=== PATIENT | female | born 1940 | race Caucasian/White ===

== ENCOUNTER 2022-10-05 16:27 | Inpatient (IN) ==
[2022-10-05] MEDS ORDERED: IOPAMIDOL 100 ML BOTTLE IV ONE (16:28)
[2022-10-05] MEDS ORDERED: IPRATROPIUM/ALBUTEROL 3 ML AMPUL.NEB NEB ONE ×2 (17:10→23:05)
[2022-10-05] MEDS ORDERED: methylPREDNISolone SOD SUCC 125 MG/2 ML VIAL IV ONE (17:10)
--- NOTE | 2022-10-05 17:20 | Emergency Department Note ---
HPI General Chief complaint: Recheck/Abnormal Lab/Rx Stated complaint: Placement Time Seen by Provider: 10/05/22 16:31 Source: patient and EMS Mode of arrival: EMS Limitations: no limitations History of Present Illness HPI Narrative: Narrative: 82-year-old female presents to the emergency to [place] [facility] for shortness of breath and cough. She has history of COPD and has had increasing shortness of breath and cough recently. Last night she was seen by a provider at the [facility] and was told she has pneumonia. She was treated with 2 antibiotics, she is not sure what antibiotics they were. Since then she has continued to cough and feel short of breath. She complains of pain in the center of her chest. The pain is constant. It is tender to touch and hurts to take a deep breath. Patient is normally on 2 L of oxygen, she is requiring 4 L right now and still feels short of breath. Patient does not know if she has had a fever. She has had some sweats and chills. She has decreased appetite and nausea without vomiting. Patient has severe neuropathy and complains of pain in both legs. She is not swollen. Related Data Home Medications Medication Instructions Recorded Confirmed lansoprazole 30 mg capsule,delayed 30 mg PO DAILY 10/12/17 09/19/22 release levothyroxine 100 mcg capsule 100 mcg PO DAILY 10/12/17 09/19/22 amlodipine 10 mg-benazepril 20 mg 1 cap PO QDAY 12/12/17 09/19/22 capsule (Lotrel) albuterol sulfate 90 mcg/actuation 2 puff inhalation Q6H PRN Dyspnea 08/09/19 09/19/22 aerosol inhaler (ProAir HFA) cholecalciferol (vitamin D3) 1,250 50,000 unit PO QWEEK 08/09/19 09/19/22 mcg (50,000 unit) capsule oxycodone-acetaminophen 5 mg-300 1 tab PO Q6H PRN Pain 08/09/19 09/19/22 mg tablet oxygen 2lpm #1 ea 08/09/19 09/19/22 torsemide 10 mg tablet 10 mg PO QDAY 08/09/19 09/19/22 aspirin 81 mg capsule 81 mg PO QDAY 09/03/21 09/19/22 potassium chloride 10 mEq 10 meq PO QDAY 10/15/21 09/19/22 tablet,extended release gabapentin 300 mg capsule 600 mg PO BID 03/01/22 09/19/22 Previous Rx's Medication Instructions Recorded lorazepam 0.5 mg tablet 0.5 mg PO QDAY PRN Anxiety #28 tabs 04/01/21 Recliner #1 ea 10/05/22 Allergies Allergy/AdvReac Type Severity Reaction Status Date / Time Beta-Blockers Allergy Mild Hives Verified 10/05/22 16:36 (Beta-Adrenergic Bloc codeine Allergy Mild Nausea Verified 10/05/22 16:36 promethazine [From Phenergan] Allergy Unknown Seizure Verified 10/05/22 16:36 venlafaxine [From Effexor] Allergy Unknown Unknown Verified 10/05/22 16:36 [id number] AdvReac Mild Voice Verified 10/05/22 16:36 [From Trelegy Ellipta] Change, Chest Rattle, Increased Cough umeclidinium AdvReac Mild Voice Verified 10/05/22 16:36 [From Trelegy Ellipta] Change, Chest Rattle, Increased Cough vilanterol AdvReac Mild Voice Verified 10/05/22 16:36 [From Trelegy Ellipta] Change, Chest Rattle, Increased Cough Review of Systems ROS ROS Narrative: Narrative: All systems ED: reviewed and negative except as stated. [facility] Narrative Patient History Narrative: Narrative: Medical/Surgical/Family History All Active Problems (Updated 10/05/22 @ 22:09 by Karley Arteaga PA-C) General weakness (Acute) Pneumonia (Acute) Neuropathy (Chronic) Nocturnal hypoxia (Chronic) Right lateral epicondylitis (Chronic) COPD (chronic obstructive pulmonary disease) (Chronic) Peripheral edema (Chronic) Peripheral nerve disease (Chronic) Restless leg (Chronic) Irritable bowel syndrome (Chronic) Chronic pain syndrome (Chronic) Osteoarthritis (Chronic) Essential tremor (Chronic) Anxiety disorder (Chronic) Essential hypertension (Chronic) 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) Hypothyroidism (Chronic) Obesity (Chronic) Gastroesophageal reflux disease (Chronic) Pulmonary emphysema (Chronic) Asthma (Chronic) Hypoxemia (Chronic) Vitamin D deficiency (Chronic) Adenomatous colon polyp (Chronic) Anxiety disorder due to general medical condition (Chronic) Contact dermatitis (Chronic) Chronic use of opiate drugs therapeutic purposes (Chronic) Chronic venous stasis dermatitis (Chronic) Current use of proton pump inhibitor (Chronic) Degenerative joint disease of shoulder (Chronic) Depression (Chronic) Edema (Chronic) GERD without esophagitis (Chronic) Headache (Chronic) Hypokalemia (Chronic) Irritable bowel syndrome without diarrhea (Chronic) Joint pain, knee (Chronic) Leg cramps (Chronic) Legal blindness, as defined in [place] (Chronic) Lipoma (Chronic) Menopausal symptoms (Chronic) Narcotic bowel syndrome (Chronic) Nausea and vomiting (Chronic) Nonulcer dyspepsia (Chronic) Overweight (Chronic) Panic disorder without agoraphobia (Chronic) Peripheral neuropathy (Chronic) Post-menopausal (Chronic) Rash of unknown cause (Chronic) Reactive airway disease (Chronic) Right shoulder pain (Chronic) Shortness of breath (Chronic) Sore throat (Chronic) Stasis dermatitis (Chronic) Urinary tract infection (Chronic) Abnormal weight gain (Chronic) Benign polyp of large intestine (Chronic) Claustrophobia (Chronic) Difficulty balancing (Chronic) Exposure to radiation (Chronic) Frequent falls (Chronic) Hereditary and idiopathic neuropathy (Chronic) Radiculopathy (Chronic) Breast cancer (Chronic) Abdominal pain (Chronic) Schatzki's ring (Chronic) Excessive gas (Chronic) Monoclonal gammopathy (Chronic) Morbid obesity (Chronic) Chronic pain (Chronic) Radiculopathy, lumbar region (Chronic) History of breast cancer (Chronic) Macular degeneration (Chronic) History of tobacco use (Chronic) History of surgery (Chronic) Acute lumbar radiculopathy (Chronic) Medical History (Updated 10/05/22 @ 22:09 by Karley Arteaga PA-C) Abdominal pain Abnormal weight gain Acute lumbar radiculopathy Adenomatous colon polyp Anxiety disorder Anxiety disorder due to general medical condition Asthma Benign polyp of large intestine Breast cancer Chronic pain Chronic pain syndrome Chronic use of opiate drugs therapeutic purposes Chronic venous stasis dermatitis Claustrophobia Contact dermatitis COPD (chronic obstructive pulmonary disease) Current use of proton pump inhibitor Cystocele Degenerative joint disease of shoulder Depression Difficulty balancing Edema Essential hypertension Essential tremor Exposure to radiation Frequent falls Gastroesophageal reflux disease GERD without esophagitis Headache Hereditary and idiopathic neuropathy History of breast cancer History of tobacco use Hypokalemia Hypothyroidism Hypoxemia Irritable bowel syndrome Irritable bowel syndrome without diarrhea Joint pain, knee Leg cramps Legal blindness Legal blindness, as defined in [place] Lipoma Macular degeneration PROGRESSED TO BLINDNESS Menopausal symptoms Monoclonal gammopathy Monoclonal gammopathy of undetermined significance Morbid obesity Narcotic bowel syndrome Nausea and vomiting Neuropathy Nocturnal hypoxia Nonulcer dyspepsia Obesity Osteoarthritis Overweight Panic disorder without agoraphobia Peripheral edema Peripheral nerve disease Peripheral neuropathy Post-menopausal Pulmonary emphysema Radiculopathy Radiculopathy, lumbar region Rash of unknown cause Reactive airway disease Rectocele Restless leg Right lateral epicondylitis Right shoulder pain Schatzki's ring Shortness of breath Sore throat Stasis dermatitis Urinary tract infection Vitamin D deficiency Surgical History History of appendectomy (~1977) History of arthroscopy of knee (~1985) History of back surgery (~1972) Lower back History of breast surgery (~2007) Lumpectomy History of cataract surgery 2005, 2001 History of cholecystectomy (~1977) History of hysterectomy (~1979) History of inguinal hernia repair (~1996) with mesh History of orthopedic surgery (~2008) wrist History of sinus surgery x 3 History of surgery 1996-cystocele (1994) and rectocele repairs History of surgery SCS Trial w/sed 03/19/2020 Caudal DENIS #3 w/o sed 25g 3.5\\" needle 02/13/2014 Caudal DENIS #2 w/o sed 01/29/2014 LESI #1 L5-S1 w/o sed 01/08/2014 Trigger Point Injection 1-2 w/o sed 01/08/2014 LESI #3 L5-S1 w/o sed 06/14/2013 LESI #2 L5-S1 w/o sed 11/21/2012 LESI #1 L5-S1, right dir. w/o sed 11/06/2012 History of tonsillectomy and adenoidectomy (~1959) History of total left knee replacement (~2012) Family History Mother Malignant neoplastic disease Other Benign polyp of large intestine Colon cancer Osteoporosis Social History Smoking Status: Former smoker Alcohol Intake Frequency: does not drink Substance Use: does not use Exam Narrative Narrative: Narrative: General Limitations: no limitations General appearance: Present anxious Head Head: Present atraumatic ENT ENT: Present mucous membranes moist Neck Neck: Absent lymphadenopathy Chest Chest: Present normal inspection Respiratory Respiratory: Present wheezes and decreased breath sounds Cardiovascular Cardiovascular: Present normal heart sounds Adbominal Abdominal: Present soft; Absent tenderness Extremities Extremities: Absent pretibial edema Back Back: Present normal inspection Neurological Neurological: Present alert Skin Skin: Present warm (WNL) Course Vital Signs Vital signs: Vital Signs Temperature 97.4 F 10/05/22 16:27 Pulse Rate 83 10/05/22 16:27 Respiratory Rate 20 10/05/22 16:27 Blood Pressure 120/72 10/05/22 16:27 Pulse Oximetry (%) 93 10/05/22 16:27 Oxygen Delivery Method Nasal Cannula 10/05/22 16:27 Oxygen Flow Rate (L/min) 4 10/05/22 16:27 Temperature 97.4 F 10/05/22 16:27 Pulse Rate 94 H 10/05/22 20:01 Respiratory Rate 19 10/05/22 21:02 Blood Pressure 152/76 10/05/22 21:02 Pulse Oximetry (%) 92 10/05/22 20:01 Oxygen Delivery Method Nasal Cannula 10/05/22 18:32 Oxygen Flow Rate (L/min) 4 10/05/22 18:32 MDM MDM Narrative Medical decision making narrative: Narrative: Differential includes COPD exacerbation, ACS, CHF, pneumonia. Patient was treated with DuoNeb and IV Solu-Medrol. CBC, Chem-8, troponin, proBNP, chest x-ray, and EKG are ordered. Chest x-ray does show patchy basilar infiltrate. EKG sinus rhythm, right bundle branch block, no ST segment changes. No concerning findings on CBC, Chem-8, troponin. proBNP is mildly elevated, however patient does not appear to have fluid ove rload on chest x-ray. After treatment with Solu-Medrol and DuoNeb patient continued to have some whe ezing, she did have improvement in air movement but was still tight. Patient has chronic neuropathy and he takes oxycodone for this. She was given a dose in the emergency department and felt much better afterwards. Patient continues to have a increased oxygen requirement. I have discussed her with the hospitalist who is agreed to admit her. Lab Data 10/05/22 17:28 Labs: Lab Results 10/05/22 10/05/22 10/05/22 Range/Units 17:28 17:28 17:28 WBC 9.5 (4.5-11.0) K/mcL RBC 4.24 (3.59-5.38) M/mcL Hgb 13.0 (11.2-15.7) g/dL Hct 41.5 (34.1-44.9) % POC Hct (36-48) MCV 97.9 (80.0-100.0) fL MCH 30.7 (26.0-34.0) pg MCHC 31.3 (31.0-36.0) g/dL RDW 13.2 (11.5-14.5) % Plt Count 160 (140-440) K/mcL MPV 9.5 (8.8-12.5) fL Immature Gran % (Auto) 0.4 (0.0-0.5) % Neut % (Auto) 84.1 H (38.0-78.0) % Lymph % (Auto) 4.4 L (15.5-49.0) % [place] % (Auto) 10.5 (1.0-12.0) % Eos % (Auto) 0.3 (0.0-7.0) % Baso % (Auto) 0.3 (0.0-2.0) % Lymph # (Auto) 0.42 L (1.50-4.80) K/mcL [place] # (Auto) 1.00 H (0.10-0.90) K/mcL Eos # (Auto) 0.03 (0.00-0.70) K/mcL Baso # (Auto) 0.03 (0.00-0.30) K/mcL Immature Gran # 0.04 (0.00-0.05) K/mcl Absolute Neutrophils 8.00 (1.80-8.00) K/mcL D-Dimer 1.56 H (0.27-0.50) ug/mL ABG Methemoglobin (0.4-1.5) % VBG pH (7.32-7.42) U VBG pCO2 (41.0-51.0) mmHg VBG pO2 (25.0-40.0) mmHg VBG HCO3 (24.0-28.0) mmol/L VBG Total CO2 (25.0-29.0) mmol/L VBG O2 Saturation (40.0-70.0) % VBG Base Excess (-2-3) Carboxyhemoglobin (0.0-1.5) % THgb Total Hemoglobin (12.0-15.0) gm/Dl POC Sodium (133-145) POC Potassium (3.3-5.1) POC Chloride (96-108) POC Total CO2 (22-30) POC BUN (6-20) POC Creatinine (0.6-1.2) POC Glucose (70-105) POC WB Ioniz Calcium (1.16-1.32) C-Reactive Protein (0.03-0.80) mg/dL NT-Pro-B Natriuret Pep 627.2 H (<450.0) pg/mL Procalcitonin (<0.10) ng/mL POC Troponin I (0.00-0.08) 10/05/22 10/05/22 10/05/22 Range/Units 17:28 17:28 17:32 WBC (4.5-11.0) K/mcL RBC (3.59-5.38) M/mcL Hgb (11.2-15.7) g/dL Hct (34.1-44.9) % POC Hct 44.0 (36-48) MCV (80.0-100.0) fL MCH (26.0-34.0) pg MCHC (31.0-36.0) g/dL RDW (11.5-14.5) % Plt Count (140-440) K/mcL MPV (8.8-12.5) fL Immature Gran % (Auto) (0.0-0.5) % Neut % (Auto) (38.0-78.0) % Lymph % (Auto) (15.5-49.0) % [place] % (Auto) (1.0-12.0) % Eos % (Auto) (0.0-7.0) % Baso % (Auto) (0.0-2.0) % Lymph # (Auto) (1.50-4.80) K/mcL [place] # (Auto) (0.10-0.90) K/mcL Eos # (Auto) (0.00-0.70) K/mcL Baso # (Auto) (0.00-0.30) K/mcL Immature Gran # (0.00-0.05) K/mcl Absolute Neutrophils (1.80-8.00) K/mcL D-Dimer (0.27-0.50) ug/mL ABG Methemoglobin (0.4-1.5) % VBG pH (7.32-7.42) U VBG pCO2 (41.0-51.0) mmHg VBG pO2 (25.0-40.0) mmHg VBG HCO3 (24.0-28.0) mmol/L VBG Total CO2 (25.0-29.0) mmol/L VBG O2 Saturation (40.0-70.0) % VBG Base Excess (-2-3) Carboxyhemoglobin (0.0-1.5) % THgb Total Hemoglobin (12.0-15.0) gm/Dl POC Sodium 131 L (133-145) POC Potassium 4.3 (3.3-5.1) POC Chloride 88 L (96-108) POC Total CO2 38.0 H (22-30) POC BUN 6 (6-20) POC Creatinine 0.5 L (0.6-1.2) POC Glucose 127 H (70-105) POC WB Ioniz Calcium 1.12 L (1.16-1.32) C-Reactive Protein 18.90 H (0.03-0.80) mg/dL NT-Pro-B Natriuret Pep (<450.0) pg/mL Procalcitonin 0.15 H (<0.10) ng/mL POC Troponin I (0.00-0.08) 10/05/22 10/05/22 Range/Units 17:34 21:01 WBC (4.5-11.0) K/mcL RBC (3.59-5.38) M/mcL Hgb (11.2-15.7) g/dL Hct (34.1-44.9) % POC Hct (36-48) MCV (80.0-100.0) fL MCH (26.0-34.0) pg MCHC (31.0-36.0) g/dL RDW (11.5-14.5) % Plt Count (140-440) K/mcL MPV (8.8-12.5) fL Immature Gran % (Auto) (0.0-0.5) % Neut % (Auto) (38.0-78.0) % Lymph % (Auto) (15.5-49.0) % [place] % (Auto) (1.0-12.0) % Eos % (Auto) (0.0-7.0) % Baso % (Auto) (0.0-2.0) % Lymph # (Auto) (1.50-4.80) K/mcL [place] # (Auto) (0.10-0.90) K/mcL Eos # (Auto) (0.00-0.70) K/mcL Baso # (Auto) (0.00-0.30) K/mcL Immature Gran # (0.00-0.05) K/mcl Absolute Neutrophils (1.80-8.00) K/mcL D-Dimer (0.27-0.50) ug/mL ABG Methemoglobin 0.4 (0.4-1.5) % VBG pH 7.42 (7.32-7.42) U VBG pCO2 50.3 (41.0-51.0) mmHg VBG pO2 73.8 H (25.0-40.0) mmHg VBG HCO3 31.8 H (24.0-28.0) mmol/L VBG Total CO2 33.4 H (25.0-29.0) mmol/L VBG O2 Saturation 90.8 H (40.0-70.0) % VBG Base Excess 6 H (-2-3) Carboxyhemoglobin 4.9 H (0.0-1.5) % THgb Total Hemoglobin 14.8 (12.0-15.0) gm/Dl POC Sodium (133-145) POC Potassium (3.3-5.1) POC Chloride (96-108) POC Total CO2 (22-30) POC BUN (6-20) POC Creatinine (0.6-1.2) POC Glucose (70-105) POC WB Ioniz Calcium (1.16-1.32) C-Reactive Protein (0.03-0.80) mg/dL NT-Pro-B Natriuret Pep (<450.0) pg/mL Procalcitonin (<0.10) ng/mL POC Troponin I < 0.02 (0.00-0.08) ED POC Tests ED POC Tests: BUCKY - Influenza A Negative BUCKY - Influenza B Negative BUCKY - SARS Antigen Negative Discharge Plan Patient/Caregiver Discharge Instructions Pt seen by [employer]/PA only: Yes Clinical Impression: Pneumonia, COPD (chronic obstructive pulmonary disease) Patient Disposition: Xfer As Inpt ([facility]) Follow up with: Unknown,Unknown [Primary Care Provider] - Prescriptions: No Action lorazepam 0.5 mg tablet 0.5 mg PO QDAY PRN (Reason: Anxiety) Qty: 28 0RF (DME) Recliner See Rx Instructions .Route .MEDSUPPLY Qty: 1 0RF Rx Instructions: Due to patient's medical conditions she needs to sleep in a recliner amlodipine-benazepril [Lotrel] 10-20 mg capsule 1 cap PO QDAY torsemide 10 mg tablet 10 mg PO QDAY gabapentin 300 mg capsule 600 mg PO BID Patient Comments: in AM and AT HS cholecalciferol (vitamin D3) 50,000 unit capsule 50,000 unit PO QWEEK (DME) oxygen 2lpm Qty: 1 Rx Instructions: As directed oxycodone-acetaminophen 5-300 mg tablet 1 tab PO Q6H PRN (Reason: Pain) albuterol sulfate [ProAir HFA] 90 mcg/actuation HFA aerosol inhaler 2 puff INHALATION Q6H PRN (Reason: Dyspnea) lansoprazole 30 MG capsule,delayed release(DR/EC) 30 mg PO DAILY levothyroxine 100 MCG capsule 100 mcg PO DAILY potassium chloride 10 mEq tablet extended release 10 meq PO QDAY aspirin 81 mg Capsule 81 mg PO QDAY
[2022-10-05 17:48] LABS: POC Calcium, Ionized 1.12 (1.16-1.32); POC Creatinine 0.5 (0.6-1.2); POC Potassium 4.3 (3.3-5.1)
--- NOTE | 2022-10-05 18:11 | XRay Report ---
CLINICAL INFORMATION: Pneumonia COMPARISON: 01/18/2018 TECHNIQUE: Portable FINDINGS: Moderate cardiomegaly is unchanged. Mediastinum and pulmonary vessels are normal. Moderate patchy infiltrate seen in the left base. Scattered fibrosis seen in the remainder of both lungs. No effusions. IMPRESSION: Moderate patchy left basilar infiltrate Interpreted and Authenticated by: Avery Campbell 10/05/22
[2022-10-05 18:18] LABS: Basophils # (Auto) 0.03 K/mcL (0.00-0.30); Basophils % (Auto) 0.3 % (0.0-2.0); Eosinophils # (Auto) 0.03 K/mcL (0.00-0.70); Eosinophils % (Auto) 0.3 % (0.0-7.0); Hematocrit 41.5 % (34.1-44.9); Lymphocytes # (Auto) 0.42 K/mcL (1.50-4.80); Lymphocytes % (Auto) 4.4 % (15.5-49.0); Mean Cell Volume 97.9 fL (80.0-100.0); Mean Corpuscular HGB Conc 31.3 g/dL (31.0-36.0); Mean Platelet Volume 9.5 fL (8.8-12.5); Monocytes % (Auto) 10.5 % (1.0-12.0); Neutrophils % (Auto) 84.1 % (38.0-78.0); Platelet Count 160 K/mcL (140-440); RBC 4.24 M/mcL (3.59-5.38); Red Cell Distribution Width 13.2 % (11.5-14.5); WBC 9.5 K/mcL (4.5-11.0)
[2022-10-05 18:36] LABS: proBNP 627.2 pg/mL (<450.0)
[2022-10-05] MEDS ORDERED: oxyCODONE HCL 5 MG TABLET PO ONE ×2 (18:42→22:51)
[2022-10-05] MEDS ORDERED: ONDANSETRON 4 MG/2 ML VIAL IV ONE (18:59)
[2022-10-05] MEDS ORDERED: IPRATROPIUM/ALBUTEROL 3 ML AMPUL.NEB NEB SCH (19:00)
[2022-10-05] MEDS ORDERED: ONDANSETRON 4 MG/2 ML VIAL ONE (19:02)
--- NOTE | 2022-10-05 20:40 | Internal Med History&Physical ---
HPI History of Present Illness Patient information: Note initiated : 10/05/22 at 8:37 pm Service Date, if different from initiated Date: [] Patient: Leticia Yi 82 y/o F admitted on for Placement. Chief Complaint: [] History of present illness: Ms. Yi is a 82 year old Female with multiple medical comorbidities who presented to the emergency department because of shortness of breath.. She recently went to custodial nursing at [facility] however things were not going well at that [place] [facility] facility. She complained she was not able to breath in the hospital bed that she was sleeping in at that facility. A chest xray was done at the facility and staff was concerned for pneumonia. The patient was started on a couple antibiotics. Family was concerned and brought the patient to the ED where she was found to be hypoxic requiring about 4 L/min nasal cannula. The patient has chronic hypoxia requiring 2-3 L/minutes oxygen supplementation. Hospital medicine was asked to admit the patient for acute on chronic hypoxia. Review of systems: Positive for shortness of breath, mild abdominal discomfort. Physical exam Head: Atraumatic, normal inspection. Eyes: normal appearance, no scleral icterus. Neck: full ROM Respiratory: Supplemental oxygen via nasal cannula, bilateral wheezing, no respiratory distress. Cardiovascular: normal rate and rhythm, S1, S2. GI/Abdominal: soft, nontender, no guarding. Extremities: full range of motion, nontender. Neurological: CN II-XII intact, intact motor, intact sensation. Psychiatric: normal mood. 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) Hypothyroidism (Chronic) Obesity (Chronic) Gastroesophageal reflux disease (Chronic) Pulmonary emphysema (Chronic) Asthma (Chronic) Hypoxemia (Chronic) Vitamin D deficiency (Chronic) Adenomatous colon polyp (Chronic) Anxiety disorder due to general medical condition (Chronic) Contact dermatitis (Chronic) Chronic use of opiate drugs therapeutic purposes (Chronic) Chronic venous stasis dermatitis (Chronic) Current use of proton pump inhibitor (Chronic) Degenerative joint disease of shoulder (Chronic) Depression (Chronic) Edema (Chronic) GERD without esophagitis (Chronic) Headache (Chronic) Hypokalemia (Chronic) Irritable bowel syndrome without diarrhea (Chronic) Joint pain, knee (Chronic) Leg cramps (Chronic) Legal blindness, as defined in [place] (Chronic) Lipoma (Chronic) Menopausal symptoms (Chronic) Narcotic bowel syndrome (Chronic) Nausea and vomiting (Chronic) Nonulcer dyspepsia (Chronic) Overweight (Chronic) Panic disorder without agoraphobia (Chronic) Peripheral neuropathy (Chronic) Post-menopausal (Chronic) Rash of unknown cause (Chronic) Reactive airway disease (Chronic) Right shoulder pain (Chronic) Shortness of breath (Chronic) Sore throat (Chronic) Stasis dermatitis (Chronic) Urinary tract infection (Chronic) Abnormal weight gain (Chronic) Benign polyp of large intestine (Chronic) Claustrophobia (Chronic) Difficulty balancing (Chronic) Exposure to radiation (Chronic) Frequent falls (Chronic) Hereditary and idiopathic neuropathy (Chronic) Radiculopathy (Chronic) Breast cancer (Chronic) Abdominal pain (Chronic) Schatzki's ring (Chronic) Excessive gas (Chronic) Monoclonal gammopathy (Chronic) Morbid obesity (Chronic) Chronic pain (Chronic) Radiculopathy, lumbar region (Chronic) History of breast cancer (Chronic) Macular degeneration (Chronic) History of tobacco use (Chronic) History of surgery (Chronic) Acute lumbar radiculopathy (Chronic) Medical History (Updated 10/05/22 @ 22:09 by Karley Arteaga PA-C) Abdominal pain Abnormal weight gain Acute lumbar radiculopathy Adenomatous colon polyp Anxiety disorder Anxiety disorder due to general medical condition Asthma Benign polyp of large intestine Breast cancer Chronic pain Chronic pain syndrome Chronic use of opiate drugs therapeutic purposes Chronic venous stasis dermatitis Claustrophobia Contact dermatitis COPD (chronic obstructive pulmonary disease) Current use of proton pump inhibitor Cystocele Degenerative joint disease of shoulder Depression Difficulty balancing Edema Essential hypertension Essential tremor Exposure to radiation Frequent falls Gastroesophageal reflux disease GERD without esophagitis Headache Hereditary and idiopathic neuropathy History of breast cancer History of tobacco use Hypokalemia Hypothyroidism Hypoxemia Irritable bowel syndrome Irritable bowel syndrome without diarrhea Joint pain, knee Leg cramps Legal blindness Legal blindness, as defined in [place] Lipoma Macular degeneration PROGRESSED TO BLINDNESS Menopausal symptoms Monoclonal gammopathy Monoclonal gammopathy of undetermined significance Morbid obesity Narcotic bowel syndrome Nausea and vomiting Neuropathy Nocturnal hypoxia Nonulcer dyspepsia Obesity Osteoarthritis Overweight Panic disorder without agoraphobia Peripheral edema Peripheral nerve disease Peripheral neuropathy Post-menopausal Pulmonary emphysema Radiculopathy Radiculopathy, lumbar region Rash of unknown cause Reactive airway disease Rectocele Restless leg Right lateral epicondylitis Right shoulder pain Schatzki's ring Shortness of breath Sore throat Stasis dermatitis Urinary tract infection Vitamin D deficiency Surgical History History of appendectomy (~1977) History of arthroscopy of knee (~1985) History of back surgery (~1972) Lower back History of breast surgery (~2007) Lumpectomy History of cataract surgery 2005, 2001 History of cholecystectomy (~1977) History of hysterectomy (~1979) History of inguinal hernia repair (~1996) with mesh History of orthopedic surgery (~2008) wrist History of sinus surgery x 3 History of surgery 1996-cystocele (1994) and rectocele repairs History of surgery SCS Trial w/sed 03/19/2020 Caudal DENIS #3 w/o sed 25g 3.5\\" needle 02/13/2014 Caudal DENIS #2 w/o sed 01/29/2014 LESI #1 L5-S1 w/o sed 01/08/2014 Trigger Point Injection 1-2 w/o sed 01/08/2014 LESI #3 L5-S1 w/o sed 06/14/2013 LESI #2 L5-S1 w/o sed 11/21/2012 LESI #1 L5-S1, right dir. w/o sed 11/06/2012 History of tonsillectomy and adenoidectomy (~1959) History of total left knee replacement (~2012) Family History Mother Malignant neoplastic disease Other Benign polyp of large intestine Colon cancer Osteoporosis Social History (Updated 09/10/22 @ 15:58 by Shannon Wang) adopted: No (but lived with her aunt and uncle until she was 10 yrs old) household members: spouse housing: condominium lives independently: No (requires assistance due to loss of eye sight) marital status: education level: high school service: No fci: No occupational status: unemployed occupational exposures/hazards: No pets and animals: Yes hx recent travel: No well-balanced diet: about half the time smoking status: Former smoker quit date: 08/01/87 pack-years: 25 alcohol intake frequency: does not drink substance use type: does not use additional history: Mastectomy Bra and Prosthesis MEDS/ALLERGIES Home Medications and Allergies Home Medications Medication Instructions Recorded Confirmed Type lansoprazole 30 mg capsule,delayed 30 mg PO DAILY 10/12/17 10/06/22 History release levothyroxine 100 mcg capsule 100 mcg PO DAILY 10/12/17 10/06/22 History amlodipine 10 mg-benazepril 20 mg 1 cap PO QDAY 12/12/17 10/05/22 History capsule (Lotrel) albuterol sulfate 90 mcg/actuation 2 puff inhalation Q4H PRN Dyspnea 08/09/19 10/05/22 History aerosol inhaler (ProAir HFA) oxygen 2lpm #1 ea 08/09/19 09/19/22 History torsemide 10 mg tablet 10 mg PO QDAY 08/09/19 10/06/22 History aspirin 81 mg capsule 81 mg PO QDAY 09/03/21 10/05/22 History potassium chloride 10 mEq 10 meq PO QDAY 10/15/21 10/06/22 History tablet,extended release gabapentin 300 mg capsule 600 mg PO BID 03/01/22 10/06/22 History Recliner #1 ea 10/05/22 Rx bisacodyl 10 mg rectal suppository 10 mg [place] QDAY PRN Constipation 10/06/22 10/06/22 History (Dulcolax (bisacodyl)) docusate sodium 100 mg capsule 100 mg PO QDAY 10/06/22 10/06/22 History (Colace) ergocalciferol (vitamin D2) 1,250 1,250 mcg PO MO 10/06/22 10/06/22 History mcg (50,000 unit) capsule guaifenesin 600 mg tablet, 600 mg PO BID 10/06/22 10/06/22 History extended release 12 hr ipratropium 0.5 mg-albuterol 3 mg 3 ml inhalation Q6H 10/06/22 10/06/22 History (2.5 mg base)/3 mL nebulization soln lorazepam 0.5 mg tablet 0.5 mg PO Q8HP PRN Anxiety 10/06/22 10/06/22 History mineral oil (Fleet Mineral Oil 118 ml [place] QDAY PRN Constipation 10/06/22 10/06/22 History enema) ondansetron 4 mg disintegrating 4 mg PO Q6HP PRN Nausea 10/06/22 10/06/22 History tablet oxycodone-acetaminophen 7.5 mg-325 1 tab PO Q6H PRN Pain 10/06/22 10/06/22 History mg tablet prednisone 10 mg tablet 30 mg PO QDAY 10/06/22 10/06/22 History triamcinolone acetonide 0.1 % 1 applic topical BID 10/06/22 10/06/22 History topical cream Allergies Allergy/AdvReac Type Severity Reaction Status Date / Time Beta-Blockers Allergy Mild Hives Verified 10/05/22 16:36 (Beta-Adrenergic Bloc venlafaxine [From Effexor] Allergy Unknown Unknown Verified 10/05/22 16:36 promethazine [From Phenergan] AdvReac Intermediate Seizure Verified 10/06/22 11:47 codeine AdvReac Mild Nausea Verified 10/06/22 06:26 [id number] AdvReac Mild Voice Verified 10/05/22 16:36 [From Trelegy Ellipta] Change, Chest Rattle, Increased Cough umeclidinium AdvReac Mild Voice Verified 10/05/22 16:36 [From Trelegy Ellipta] Change, Chest Rattle, Increased Cough vilanterol AdvReac Mild Voice Verified 10/05/22 16:36 [From Trelegy Ellipta] Change, Chest Rattle, Increased Cough EXAM Constitutional Vitals: Temp Pulse Resp BP Pulse Ox O2 Del Method O2 Flow Rate 97.4 F 71 20 153/98 90 Nasal Cannula 4 10/05/22 16:27 10/05/22 19:31 10/05/22 19:31 10/05/22 19:31 10/05/22 19:31 10/05/22 18:32 10/05/22 18:32 DATA Data Completed and Pending Labs: Labs from last 24 hours 10/05/22 10/05/22 10/05/22 17:34 17:32 17:28 WBC RBC Hgb Hct POC Hct 44.0 MCV MCH MCHC RDW Plt Count MPV Immature Gran % (Auto) Neut % (Auto) Lymph % (Auto) [place] % (Auto) Eos % (Auto) Baso % (Auto) Lymph # (Auto) [place] # (Auto) Eos # (Auto) Baso # (Auto) Immature Gran # Absolute Neutrophils D-Dimer POC Sodium 131 L POC Potassium 4.3 POC Chloride 88 L POC Total CO2 38.0 H POC BUN 6 POC Creatinine 0.5 L POC Glucose 127 H POC WB Ioniz Calcium 1.12 L NT-Pro-B Natriuret Pep Procalcitonin Pending POC Troponin I < 0.02 10/05/22 10/05/22 10/05/22 17:28 17:28 17:28 WBC 9.5 RBC 4.24 Hgb 13.0 Hct 41.5 POC Hct MCV 97.9 MCH 30.7 MCHC 31.3 RDW 13.2 Plt Count 160 MPV 9.5 Immature Gran % (Auto) 0.4 Neut % (Auto) 84.1 H Lymph % (Auto) 4.4 L [place] % (Auto) 10.5 Eos % (Auto) 0.3 Baso % (Auto) 0.3 Lymph # (Auto) 0.42 L [place] # (Auto) 1.00 H Eos # (Auto) 0.03 Baso # (Auto) 0.03 Immature Gran # 0.04 Absolute Neutrophils 8.00 D-Dimer Pending POC Sodium POC Potassium POC Chloride POC Total CO2 POC BUN POC Creatinine POC Glucose POC WB Ioniz Calcium NT-Pro-B Natriuret Pep 627.2 H Procalcitonin POC Troponin I A/P Narrative A/P Narrative: Assessment: 82 year old female with a history of COPD on 2 L/min oxygen, hypertension, MGUS, hypothyroidism, GERD, neuropathy, chronic opioid use, breast cancer admitted for acute on chronic hypoxic respiratory failure possibly secondary to pneumonia and a COPD exacerbation. The patient presents from a [place] [facility] facility. #Acute on chronic hypoxic respiratory failure #Left basilar infiltrate likely community acquired pneumonia #COPD exacerbation #Hyponatremia, mild #Hypertension #Hypothyroidism #GERD #Neuropathy on chronic opioid therapy #History of breast cancer #MGUS #Obesity BMI 39 Plan -Ceftriaxone and Azithromycin. -Solumedrol for COPD exacerbation. -Scheduled Duonebs and albuterol as needed. -Oxygen supplementation. -VBG, procalcitonin, CPR, d-dimer. -Sputum culture. -Consider CT chest. -Home medication reconcilliation. -PT and OT consult. -Regular diet. -DVT prophylaxis: Lovenox Time Spent With Patient Time: Total time spent is greater than 50% in coordination of care (as documented) at patient's floor/unit and/or counseling patient:
[2022-10-05 21:21] LABS: ABG Methemoglobin 0.4 % (0.4-1.5); Total Hemoglobin 14.8 gm/Dl (12.0-15.0); VBG Base Excess 6 (-2-3); VBG HCO3 31.8 mmol/L (24.0-28.0); VBG Oxygen Saturation 90.8 % (40.0-70.0); VBG PCO2 50.3 mmHg (41.0-51.0); VBG PH 7.42 U (7.32-7.42); VBG PO2 73.8 mmHg (25.0-40.0); VBG Total CO2 33.4 mmol/L (25.0-29.0)
[2022-10-05] MEDS ORDERED: ONDANSETRON 4 MG/2 ML VIAL IV PRN (22:34)
[2022-10-05] MEDS ORDERED: ALBUTEROL SULFATE 2.5 MG/3 ML NEBULIZER NEB PRN (22:34)
[2022-10-05] MEDS ORDERED: ACETAMINOPHEN 325 MG TABLET PO PRN (22:34)
[2022-10-05] MEDS ORDERED: cefTRIAXone 1 GM VIAL ONE (23:00)
[2022-10-05] MEDS: SENNOSIDES 1 TABLET PO SCH (23:13)
[2022-10-05] MEDS: DOCUSATE SODIUM 100 MG CAPSULE PO SCH (23:13)
[2022-10-05] MEDS: oxyCODONE HCL 5 MG TABLET PO PRN (23:14)
[2022-10-05] MEDS ORDERED: GABAPENTIN 300 MG CAPSULE PO ONE (23:20)
[2022-10-05] MEDS ORDERED: guaiFENesin 600 MG TAB.SR.12H PO ONE ×2 (23:20→23:54)
[2022-10-05] MEDS: cefTRIAXone 1 GM VIAL IV SCH (23:22)
[2022-10-05] MEDS: AZITHROMYCIN 500 MG in DEXTROSE 5% IN WATER 250 ML IV SCH (23:23)
[2022-10-05] MEDS: 0.9 % SODIUM CHLORIDE 10 ML SYRINGE IV SCH (23:25)
[2022-10-05] MEDS: IPRATROPIUM/ALBUTEROL 3 ML AMPUL.NEB NEB SCH (23:29)
[2022-10-05] MEDS ORDERED: LORazepam 0.5 MG TABLET ONE (23:54)
[2022-10-05] MEDS ORDERED: GABAPENTIN 300 MG CAPSULE ONE (23:59)
[2022-10-06] MEDS: LORazepam 0.5 MG TABLET PO PRN ×5 (00:08→23:59)
[2022-10-06] MEDS: IPRATROPIUM/ALBUTEROL 3 ML AMPUL.NEB NEB SCH ×5 (03:50→19:37)
--- NOTE | 2022-10-06 04:28 | Cat Scan Report ---
CLINICAL INFORMATION: Elevated d-dimer shortness of breath. History of left breast cancer COMPARISON: Chest CT 08/21/2018 TECHNIQUE: 80ml of Isovue-370 were injected intravenously. Using SmartPrep to maximize pulmonary artery opacification, .625mm helical slices were obtained from the lung apices through the lung bases. Following reconstruction, 2.5 mm sagittal, coronal, and axial reformations were processed. The exam was reviewed at mediastinal, lung, and bone windows. The exam was performed using radiation dose optimization techniques including, but not limited to, automated exposure control, adjustment of the mA and/or kV according to patient size and use of iterative reconstruction technique. FINDINGS: Pulmonary parenchymal windows moderate consolidated infiltrate in the posterior left lower lobe with a small infiltrate in the posterior medial right lower lobe. Scattered solid pulmonary nodules, in both lungs, are new since the comparison examination over four years ago: 7 mm in the paramediastinal right upper lobe on image 41, 6.4 mm in the right midlung on image 46, 7.5 mm pleural-based nodule in the superior segment left lower lobe on image 58, 5 mm superior segment left lower lobe image 58, 7 mm in the posterior segment right upper lobe on image 61, and three in the right middle lobe ranging up to 5 mm. These could represent metastases or granulomas. Small left pleural effusion noted. Mediastinal windows show the heart is mildly enlarged with moderate calcific plaque in the coronary arteries. The central pulmonary arteries are enlarged main pulmonary diameter 3.6 cm compatible with pulmonary hypertension. Arteries are opacified-no evidence of embolus. There is no adenopathy in the mediastinal, hilar or axillary regions. The esophagus is grossly normal. The thyroid is diminutive but otherwise normal. Images should superior abdomen show a 20 mm benign adenoma left adrenal gland which is stable. Bilateral cysts in the superior kidneys are also stable. Bone windows show no osseous abnormality. Spinal stimulator stable satisfactory position. IMPRESSION: 1. No evidence of pulmonary embolus. There is however, moderate enlargement of the central pulmonary arteries compatible with pulmonary hypertension. Etiology uncertain. It may be idiopathic. 2. Moderate consolidated infiltrate left lower lobe with small infiltrate in the medial right lower lobe. Consider infection or aspiration 3. Scattered pulmonary nodules which are new since the comparison CT four years ago. These could represent granulomas or metastases. History of breast carcinoma acknowledged. 4. Small left pleural effusion Interpreted and Authenticated by: Avery Campblel 10/06/22
[2022-10-06] MEDS: oxyCODONE HCL 5 MG TABLET PO PRN ×4 (06:04→21:03)
[2022-10-06] MEDS ORDERED: oxyCODONE HCL 5 MG TABLET PO ONE (06:04)
[2022-10-06] MEDS: 0.9 % SODIUM CHLORIDE 10 ML SYRINGE IV SCH ×3 (06:45→20:38)
[2022-10-06 07:49] LABS: Basophils # (Auto) 0.01 K/mcL (0.00-0.30); Basophils % (Auto) 0.2 % (0.0-2.0); Eosinophils # (Auto) 0 K/mcL (0.00-0.70); Eosinophils % (Auto) 0 % (0.0-7.0); Hemoglobin 13.4 g/dL (11.2-15.7); Lymphocytes # (Auto) 0.37 K/mcL (1.50-4.80); Lymphocytes % (Auto) 6.1 % (15.5-49.0); Mean Cell Volume 97.9 fL (80.0-100.0); Mean Corpuscular HGB Conc 31.2 g/dL (31.0-36.0); Mean Platelet Volume 9.8 fL (8.8-12.5); Monocytes # (Auto) 0.18 K/mcL (0.10-0.90); Neutrophils % (Auto) 90.2 % (38.0-78.0); Platelet Count 165 K/mcL (140-440); RBC 4.39 M/mcL (3.59-5.38); Red Cell Distribution Width 12.8 % (11.5-14.5)
[2022-10-06 08:22] LABS: ALT/SGPT 12 U/L (<40); AST/SGOT 13 U/L (<32); Albumin 3.1 gm/dL (3.2-5.2); Albumin/Globulin Ratio 0.7 (1.0-2.3); Alkaline Phosphatase 88 U/L (39-117); Bilirubin,Direct < 0.2 mg/dL (0-0.3); Bilirubin,Total 0.4 mg/dL (0.1-1.0); Blood Urea Nitrogen 8 mg/dL (8-23); Calcium 9.2 mg/dL (8.6-10.4); Carbon Dioxide 32 mmol/L (22-30); Chloride 91 mmol/L (96-108); Globulin 4.4 gm/dL (2.2-3.7); Glomerular Filtration Rate 96; Glucose 145 mg/dL (70-105); Lactate Dehydrogenase 157 U/L (135-225); Phosphorous 2.8 mg/dL (2.5-4.5); Triglycerides 58 mg/dL (<150); Uric Acid 4.3 mg/dL (2.5-8.0)
[2022-10-06] MEDS: methylPREDNISolone SOD SUCC 125 MG/2 ML VIAL IV SCH ×2 (08:58→20:35)
[2022-10-06] MEDS: ENOXAPARIN 40 MG/0.4 ML SYRINGE SQ SCH (08:58)
[2022-10-06] MEDS: DOCUSATE SODIUM 100 MG CAPSULE PO SCH ×2 (08:58→20:35)
[2022-10-06] MEDS: LEVALBUTEROL 1.25 MG/3 ML AMPUL.NEB NEB SCH ×2 (13:38→19:37)
[2022-10-06] MEDS: AZITHROMYCIN 500 MG in DEXTROSE 5% IN WATER 250 ML IV SCH (13:59)
[2022-10-06] MEDS: cefTRIAXone 1 GM VIAL IV SCH (15:50)
[2022-10-06] MEDS ORDERED: METOCLOPRAMIDE 10 MG/2 ML VIAL IV PRN (18:09)
[2022-10-06] MEDS: SENNOSIDES 1 TABLET PO SCH (20:35)
[2022-10-07] MEDS: IPRATROPIUM/ALBUTEROL 3 ML AMPUL.NEB NEB SCH ×4 (01:39→11:14)
[2022-10-07] MEDS: LEVALBUTEROL 1.25 MG/3 ML AMPUL.NEB NEB SCH ×2 (01:39→07:36)
[2022-10-07] MEDS: LORazepam 0.5 MG TABLET PO PRN ×3 (03:46→18:44)
[2022-10-07] MEDS: oxyCODONE HCL 5 MG TABLET PO PRN ×5 (03:46→22:03)
[2022-10-07] MEDS: 0.9 % SODIUM CHLORIDE 10 ML SYRINGE IV SCH ×4 (04:39→20:31)
--- NOTE | 2022-10-07 06:48 | EKG ---
[facility] Test Date: 2022-10-05 Pat Name: Leticia Yi Department: ED Room: Gender: Female [employer] Architect: mindi : 1940 Requested By: Karley Arteaga Order Number: [id number] Reading MD: Matti Anglin Measurements Intervals Edna Rate: 88 P: 49 MA: 200 QRS: -58 QRSD: 132 T: 55 QT: 394 QTc: 477 Interpretive Statements Sinus rhythm Atrial premature complex RBBB Electronically Signed On 10-07-2022 6:47:47 PST by Matti Anglin /store/M0/[id number]
[2022-10-07 06:59] LABS: ALT/SGPT 8 U/L (<40); AST/SGOT 13 U/L (<32); Albumin/Globulin Ratio 0.7 (1.0-2.3); Alkaline Phosphatase 82 U/L (39-117); Bilirubin,Direct < 0.2 mg/dL (0-0.3); Bilirubin,Total 0.4 mg/dL (0.1-1.0); Blood Urea Nitrogen 12 mg/dL (8-23); Calcium 9.3 mg/dL (8.6-10.4); Carbon Dioxide 32 mmol/L (22-30); Chloride 90 mmol/L (96-108); Globulin 4.1 gm/dL (2.2-3.7); Glomerular Filtration Rate 96; Glucose 182 mg/dL (70-105); Lactate Dehydrogenase 172 U/L (135-225); Phosphorous 2.5 mg/dL (2.5-4.5); Triglycerides 75 mg/dL (<150); Uric Acid 3.5 mg/dL (2.5-8.0)
[2022-10-07] MEDS: LEVOTHYROXINE 100 MCG TABLET PO SCH (07:35)
[2022-10-07] MEDS: GABAPENTIN 300 MG CAPSULE PO SCH ×2 (07:35→20:30)
[2022-10-07] MEDS: DOCUSATE SODIUM 100 MG CAPSULE PO SCH ×2 (07:35→20:31)
[2022-10-07] MEDS: PANTOPRAZOLE 40 MG TABLET PO SCH (07:36)
[2022-10-07] MEDS: ASPIRIN 81 MG TAB.CHEW PO SCH (07:36)
[2022-10-07] MEDS: TORSEMIDE 10 MG TABLET PO SCH (07:36)
[2022-10-07] MEDS: cefTRIAXone 1 GM VIAL IV SCH (07:37)
[2022-10-07] MEDS: methylPREDNISolone SOD SUCC 125 MG/2 ML VIAL IV SCH (07:37)
[2022-10-07] MEDS: ENOXAPARIN 40 MG/0.4 ML SYRINGE SQ SCH (07:37)
[2022-10-07] MEDS: guaiFENesin 600 MG TAB.SR.12H PO SCH ×2 (07:37→20:31)
[2022-10-07] MEDS ORDERED: AMLODIPINE BENAZEPRIL PO SCH (09:00)
[2022-10-07] MEDS ORDERED: [UNRECOGNIZED DRUG - OTHER] PO SCH (09:00)
[2022-10-07] MEDS ORDERED: LANSOPRAZOLE 30 MG PO SCH (09:00)
[2022-10-07] MEDS ORDERED: METOCLOPRAMIDE 10 MG TABLET PO PRN (09:46)
[2022-10-07] MEDS ORDERED: IPRATROPIUM/ALBUTEROL 3 ML AMPUL.NEB NEB PRN (12:02)
[2022-10-07] MEDS ORDERED: LEVALBUTEROL 1.25 MG/3 ML AMPUL.NEB NEB PRN (12:02)
[2022-10-07] MEDS ORDERED: ONDANSETRON 4 MG ODT TABLET SL PRN (12:03)
[2022-10-07] MEDS: AZITHROMYCIN 500 MG in DEXTROSE 5% IN WATER 250 ML IV SCH (12:45)
[2022-10-07] MEDS: amLODIPine 5 MG TABLET PO SCH (12:45)
[2022-10-07] MEDS: LISINOPRIL 20 MG TABLET PO SCH (12:50)
--- NOTE | 2022-10-07 13:28 | Internal Med Progress Note ---
SUBJECTIVE Subjective Patient information: Note initiated : 10/07/22 at 1:24 pm Service Date, if different from initiated Date: [] Patient: Leticia Yi 82 y/o F admitted on 10/05/22 for Placement. Chief Complaint: [] Interval history: Ms. Yi is a 82 year old Female with multiple medical comorbidities who presented to the emergency department because of shortness of breath.. She recently went to long term care phlebotomist nursing at [facility] however things were not going well at that nursing home facility. She complained she was not able to breath in the hospital bed that she was sleeping in at that facility. A chest xray was done at the facility and staff was concerned for pneumonia. The patient was started on a couple antibiotics. Family was concerned and brought the patient to the ED where she was found to be hypoxic requiring about 4 L/min nasal cannula. The patient has chronic hypoxia [facility]3 [facility] for acute on chronic hypoxia. 10/07 Patient is at her baseline oxygen requirement, feels less anxious after trial of Xopenex yesterday instead of DuoNebs. Change Xopenex to as needed as well as ipratropium to as needed. Continue monitoring respiratory status, if the patient remained stable then she will be okay to discharge home. Also, the pat ient had some nausea overnight requiring IV Zofran and then Reglan. Changed to p.o. antiemetics today. Discussed the patient with her daughter, she said that she could take the patient home tomorrow. Physical exam Head: Atraumatic, normal inspection. Eyes: normal appearance, no scleral icterus. Neck: full ROM Respiratory: Supplemental oxygen via nasal cannula, bilateral wheezing, no respiratory distress. Cardiovascular: normal rate and rhythm, S1, S2. GI/Abdominal: soft, nontender, no guarding. Extremities: full range of motion, nontender. Neurological: CN II-XII intact, intact motor, intact sensation. Psychiatric: normal mood. Skin: warm, normal color Constitutional Vitals: Vital Signs Temp Pulse Resp BP Pulse Ox O2 Del Method O2 Flow Rate 97.7 F 101 H 24 H 173/83 95 Nasal Cannula 3 10/07/22 07:57 10/07/22 07:57 10/07/22 08:00 10/07/22 07:57 10/07/22 08:00 10/07/22 08:00 10/07/22 08:00 Period Temp Pulse Resp BP Sys/Ren Pulse Ox O2 Del Method O2 Flow Rate Last 24 Hr 97.7 F-98.3 F 88-101 20-24 138-173/73-89 92-98 Nasal Cannula- Room Air 3-3.5 Intake and Output 10/07/22 10/07/22 10/07/22 03:59 11:59 19:59 Intake Total 240 Output Total 203 Balance 37 Intake & Output: Intake & Output 10/07/22 10/07/22 10/07/22 03:59 11:59 19:59 Intake Total 240 Output Total 203 Balance 37 Intake: Oral 240 Output: Void Amount 200 # of times incontinent of urine 3 Other: Urine Appearance Clear Urine Color Pale Urine Odor Normal # Voids 1 OBJ DATA Labs 10/06/22 06:03 10/07/22 05:13 Labs: Abnormal Lab Results 10/07/22 10/06/22 10/06/22 05:13 06:03 06:02 Neut % (Auto) 90.2 H Lymph % (Auto) 6.1 L Lymph # (Auto) 0.37 L Isabella # (Auto) D-Dimer VBG pO2 VBG HCO3 VBG Total CO2 VBG O2 Saturation VBG Base Excess Carboxyhemoglobin POC Sodium Sodium 130 L 131 L POC Chloride Chloride 90 L 91 L Carbon Dioxide 32 H 32 H POC Total CO2 Creatinine 0.4 L 0.4 L POC Creatinine Glucose 182 H 145 H POC Glucose POC WB Ioniz Calcium C-Reactive Protein NT-Pro-B Natriuret Pep Albumin 3.0 L 3.1 L Globulin 4.1 H 4.4 H Albumin/Globulin Ratio 0.7 L 0.7 L Procalcitonin 10/05/22 10/05/22 10/05/22 21:01 17:32 17:28 Neut % (Auto) Lymph % (Auto) Lymph # (Auto) Isabella # (Auto) D-Dimer VBG pO2 73.8 H VBG HCO3 31.8 H VBG Total CO2 33.4 H VBG O2 Saturation 90.8 H VBG Base Excess 6 H Carboxyhemoglobin 4.9 H POC Sodium 131 L Sodium POC Chloride 88 L Chloride Carbon Dioxide POC Total CO2 38.0 H Creatinine POC Creatinine 0.5 L Glucose POC Glucose 127 H POC WB Ioniz Calcium 1.12 L C-Reactive Protein 18.90 H NT-Pro-B Natriuret Pep Albumin Globulin Albumin/Globulin Ratio Procalcitonin 10/05/22 10/05/22 10/05/22 17:28 17:28 17:28 Neut % (Auto) Lymph % (Auto) Lymph # (Auto) Isabella # (Auto) D-Dimer 1.56 H VBG pO2 VBG HCO3 VBG Total CO2 VBG O2 Saturation VBG Base Excess Carboxyhemoglobin POC Sodium Sodium POC Chloride Chloride Carbon Dioxide POC Total CO2 Creatinine POC Creatinine Glucose POC Glucose POC WB Ioniz Calcium C-Reactive Protein NT-Pro-B Natriuret Pep 627.2 H Albumin Globulin Albumin/Globulin Ratio Procalcitonin 0.15 H 10/05/22 17:28 Neut % (Auto) 84.1 H Lymph % (Auto) 4.4 L Lymph # (Auto) 0.42 L Isabella # (Auto) 1.00 H D-Dimer VBG pO2 VBG HCO3 VBG Total CO2 VBG O2 Saturation VBG Base Excess Carboxyhemoglobin POC Sodium Sodium POC Chloride Chloride Carbon Dioxide POC Total CO2 Creatinine POC Creatinine Glucose POC Glucose POC WB Ioniz Calcium C-Reactive Protein NT-Pro-B Natriuret Pep Albumin Globulin Albumin/Globulin Ratio Procalcitonin Meds: Medications Acetaminophen (Acetaminophen 325 Mg Tablet) 650 mg PO Q6HP PRN; Protocol PRN Reason: Per Pain Protocol/Fever > 101 Last Admin: 10/06/22 10:43 Dose: 650 mg Albuterol Sulfate (Albuterol Sulfate 2.5 Mg/3 Ml Nebulizer) 2.5 mg NEB Q2HP PRN PRN Reason: Shortness Of Breath Albuterol/Ipratropium (Ipratropium/Albuterol 3 Ml Ampul.Neb) 3 ml NEB Q4HP PRN PRN Reason: wheezing Amlodipine Besylate (Amlodipine 5 Mg Tablet) 10 mg PO DAILY [facility] Last Admin: 10/07/22 12:45 Dose: 10 mg Aspirin (Aspirin 81 Mg Tab.Chew) 81 mg PO QDAY [facility] Last Admin: 10/07/22 07:36 Dose: 81 mg Ceftriaxone Sodium (Ceftriaxone 1 Gm Vial) 1 gm IV Q24H PEDRO; Protocol Stop: 10/10/22 22:33 Last Admin: 10/07/22 07:37 Dose: 1 gm Docusate Sodium (Docusate Sodium 100 Mg Capsule) 100 mg PO BID [facility] Last Admin: 10/07/22 07:35 Dose: 100 mg Enoxaparin Sodium (Enoxaparin 40 Mg/0.4 Ml Syringe) 40 mg SQ DAILY [facility] Last Admin: 10/07/22 07:37 Dose: 40 mg Gabapentin (Gabapentin 300 Mg Capsule) 600 mg PO BID [facility] Last Admin: 10/07/22 07:35 Dose: 600 mg Guaifenesin (Guaifenesin 600 Mg Tab.Sr.12h) 600 mg PO BID [facility] Last Admin: 10/07/22 07:37 Dose: 600 mg Azithromycin 500 mg/ Dextrose 250 mls @ 250 mls/hr IV Q24H [facility]; Protocol Stop: 10/07/22 23:33 Last Admin: 10/07/22 12:45 Dose: 250 mls/hr Levalbuterol HCl (Levalbuterol 1.25 Mg/3 Ml Ampul.Neb) 1.25 mg NEB Q4HP PRN PRN Reason: Wheezing Levothyroxine Sodium (Levothyroxine 100 Mcg Tablet) 100 mcg PO ACB [facility] Last Admin: 10/07/22 07:35 Dose: 100 mcg Lisinopril (Lisinopril 20 Mg Tablet) 20 mg PO DAILY [facility] Last Admin: 10/07/22 12:50 Dose: 20 mg Lorazepam (Lorazepam 0.5 Mg Tablet) 0.5 mg PO Q8HP PRN PRN Reason: Anxiety Last Admin: 10/07/22 07:36 Dose: 0.5 mg Metoclopramide HCl (Metoclopramide 10 Mg Tablet) 5 mg PO Q6HP PRN PRN Reason: Nausea And Vomiting Ondansetron HCl (Ondansetron 4 Mg Odt Tablet) 4 mg SL Q4HP PRN PRN Reason: Nausea And Vomiting Oxycodone HCl (Oxycodone Hcl 5 Mg Tablet) 5 mg PO Q4HP PRN; Protocol PRN Reason: Per Pain Protocol Last Admin: 10/07/22 07:36 Dose: 5 mg [facility]oprazole Sodium ([facility] 40 Mg Tablet) [facility] Admin: 10/07/22 07:36 Dose: 40 mg Prednisone (Prednisone 20 Mg Tablet) 40 mg PO [facility] Senna (Sennosides 1 Tablet) 2 tab PO [facility] Last Admin: 10/06/22 20:35 Dose: 2 tab Sodium Chloride (0.9 % Sodium Chloride 10 Ml Syringe) 10 ml IV Q8 [facility] Last Admin: 10/07/22 07:38 Dose: 10 ml Torsemide (Torsemide 10 Mg Tablet) 10 mg PO QDAY [facility] Last Admin: 10/07/22 07:36 Dose: 10 mg ABG Interpretation ABG results: 10/05/22 21:01 ABG Methemoglobin 0.4 VBG pH 7.42 VBG pCO2 50.3 VBG pO2 73.8 H VBG HCO3 31.8 H VBG Total CO2 33.4 H VBG O2 Saturation 90.8 H VBG Base Excess 6 H A/P Narrative A/P Narrative: Assessment: 82 year old female with a history of COPD on 2-3 L/min oxygen, hypertension, MGUS, hypothyroidism, GERD, neuropathy, chronic opioid use, breast cancer admitted for acute on chronic hypoxic respiratory failure possibly secondary to pneumonia and a COPD exacerbation. The patient presents from a nursing home facility. #Acute on chronic hypoxic respiratory failure #Left basilar infiltrate likely community acquired pneumonia #COPD exacerbation #Hyponatremia, mild #Hypertension #Hypothyroidism #Chronic nausea #GERD #Neuropathy on chronic opioid therapy #History of breast cancer #MGUS #Obesity BMI 38 Plan -Ceftriaxone and Azithromycin. -Start prednisone 40 mg daily, discontinue Solu-Medrol. -As needed Xopenex, ipratropium, albuterol nebs. -Oxygen supplementation. -Continue home aspirin, gabapentin, Mucinex, levothyroxine, Ativan as needed, torsemide, lisinopril for nonformulary BenzePrO, amlodipine. -PT and OT consult. -Regular diet. -DVT prophylaxis: Lovenox -CODE STATUS: DNR/DNI -Disposition: Currently inpatient MedSurg. Possibly discharge to home with family 21/02 supervision tomorrow. Time Spent With Patient Time: Total time spent is greater than 50% in coordination of care (as documented) at patient's floor/unit and/or counseling patient:
[2022-10-07] MEDS: SENNOSIDES 1 TABLET PO SCH (20:30)
[2022-10-08] MEDS: oxyCODONE HCL 5 MG TABLET PO PRN ×3 (02:16→13:06)
[2022-10-08] MEDS: 0.9 % SODIUM CHLORIDE 10 ML SYRINGE IV SCH (04:35)
[2022-10-08] MEDS: PANTOPRAZOLE 40 MG TABLET PO SCH (06:58)
[2022-10-08] MEDS: LEVOTHYROXINE 100 MCG TABLET PO SCH (06:58)
[2022-10-08] MEDS ORDERED: predniSONE 20 MG TABLET PO SCH (08:00)
[2022-10-08] MEDS: guaiFENesin 600 MG TAB.SR.12H PO SCH (08:26)
[2022-10-08] MEDS: GABAPENTIN 300 MG CAPSULE PO SCH (08:26)
[2022-10-08] MEDS: ASPIRIN 81 MG TAB.CHEW PO SCH (08:26)
[2022-10-08] MEDS: LISINOPRIL 20 MG TABLET PO SCH (08:26)
[2022-10-08] MEDS: TORSEMIDE 10 MG TABLET PO SCH (08:26)
[2022-10-08] MEDS: cefTRIAXone 1 GM VIAL IV SCH (08:27)
[2022-10-08] MEDS: ENOXAPARIN 40 MG/0.4 ML SYRINGE SQ SCH (08:27)
[2022-10-08] MEDS: amLODIPine 5 MG TABLET PO SCH (08:27)
[2022-10-08] MEDS: DOCUSATE SODIUM 100 MG CAPSULE PO SCH (08:27)
[2022-10-08] MEDS: LORazepam 0.5 MG TABLET PO PRN (08:45)
[2022-10-08] MEDS ORDERED: ALBUTEROL SULFATE 60 PUFF INHALER INH PRN (11:07)
--- NOTE | 2022-10-08 11:18 | Discharge Summary ---
Discharge Provider Provider IMPORTANT FOLLOW-UP INFORMATION FOR PCP: Patient information: Note initiated : 10/08/22 at 11:16 am Service Date, if different from initiated Date: [] Patient: Leticia Yi 82 y/o F admitted on 10/05/22 for Placement. Chief Complaint: [] Date of admission: 10/05/22 22:23 Discharge date: 10/08/22 Primary care physician: Unknown Unknown Consults: 10/05/22 Consult to Physician [CONS] Stat Comment: Consulting Provider: Baltazar Berry Reason For Exam: Physician to Consult COURSE Hospital Course Hospital course: Ms. Yi is a 82 year old Female with multiple medical comorbidities who presented to the emergency department because of shortness of breath.. She recently went to detention nursing at [facility] however things were not going well at that [facility] facility. She complained she was not able to breath in the hospital bed that she was sleeping in at that facility. A chest xray was done at the facility and staff was concerned for pneumonia. The patient was started on a couple antibiotics. Family was concerned and brought the patient to the ED where she was found to be hypoxic requiring about 4 L/min nasal cannula. The patient has chronic hypoxia requiring 2-3 L/minutes oxygen supplementation. Hospital medicine was asked to admit the patient for acute on chronic hypoxia. 10/07 Patient is at her baseline oxygen requirement, feels less anxious after trial of Xopenex yesterday instead of DuoNebs. Change Xopenex to as needed as well as ipratropium to as needed. Continue monitoring respiratory status, if the akira ent remained stable then she will be okay to discharge home. Also, the patient had some nausea overnight requiring IV Zofran and then Reglan. Changed to p.o. antiemetics today. Discussed the patient with her daughter, she said that she could take the patient home tomorrow. 10/08 Vital stable overnight, the patient was weaned down to 1.5 L of oxygen supplementation. RT will instruct the patient in the use of her metered-dose inhaler for refresher education. The patient is discharged to home with home health, she will complete 3 more days of antibiotic with cefuroxime for community-acquired pneumonia and 3 more days of prednisone for COPD exacerbation. Physical exam Head: Atraumatic, normal inspection. Eyes: normal appearance, no scleral icterus. Neck: full ROM Respiratory: Supplemental oxygen via nasal cannula, bilateral wheezing, no respiratory distress. Cardiovascular: normal rate and rhythm, S1, S2. GI/Abdominal: soft, nontender, no guarding. Extremities: full range of motion, nontender. Neurological: CN II-XII intact, intact motor, intact sensation. Psychiatric: normal mood. Skin: warm, normal color Discharge diagnosis: Community-acquired pneumonia Secondary discharge diagnosis: COPD exacerbation Acute on chronic hypoxic respiratory failure Time Spent with Patient Time attestation: Total time spent providing and/or coordinating discharge services: Time spent: Greater than 30 minutes EXAM Constitutional Vitals: Temp Pulse Resp BP Pulse Ox O2 Del Method O2 Flow Rate 99.0 F 81 20 145/82 95 Nasal Cannula 1.5 10/08/22 06:59 10/08/22 06:59 10/08/22 06:59 10/08/22 06:59 10/08/22 06:59 10/08/22 06:59 10/08/22 06:59 Discharge Plan Patient/Caregiver Discharge Instructions Activity: as per physical therapy Diet: Regular Diet Prescriptions: New prednisone 20 mg Tablet 40 mg PO QAC 3 Days Qty: 6 0RF cefuroxime axetil 500 mg tablet 500 mg PO BID 3 Days Qty: 6 0RF Continued amlodipine-benazepril [Lotrel] 10-20 mg capsule 1 cap PO QDAY torsemide 10 mg tablet 10 mg PO QDAY gabapentin 300 mg capsule 600 mg PO BID Patient Comments: in AM and AT HS albuterol sulfate [ProAir HFA] 90 mcg/actuation HFA aerosol inhaler 2 puff INHALATION Q4H PRN (Reason: Dyspnea) Rx Instructions: May have at bedside lansoprazole 30 MG capsule,delayed release(DR/EC) 30 mg PO DAILY levothyroxine 100 MCG capsule 100 mcg PO DAILY potassium chloride 10 mEq tablet extended release 10 meq PO QDAY aspirin 81 mg Capsule 81 mg PO QDAY lorazepam 0.5 mg tablet 0.5 mg PO Q8HP PRN (Reason: Anxiety) triamcinolone acetonide 0.1 % cream 1 applic topical BID Rx Instructions: to pannus for yeast ondansetron 4 mg tablet,disintegrating 4 mg PO Q6HP PRN (Reason: Nausea) ipratropium-albuterol 0.5 mg-3 mg(2.5 mg base)/3 mL Solution For Nebulization 3 ml INHALATION Q6H mineral oil [Fleet Mineral Oil] Enema 118 ml IL QDAY PRN (Reason: Constipation) Rx Instructions: discard any unused portion bisacodyl [Dulcolax (bisacodyl)] 10 mg Suppository 10 mg IL QDAY PRN (Reason: Constipation) docusate sodium [Colace] 100 mg Capsule 100 mg PO QDAY ergocalciferol (vitamin D2) 1,250 mcg (50,000 unit) Capsule 1,250 mcg PO MO Rx Instructions: weekly on Tuesday oxycodone-acetaminophen 7.5-325 mg Tablet 1 tab PO Q6H PRN (Reason: Pain) guaifenesin 600 mg Tablet Extended Release 12hr 600 mg PO BID Discontinued prednisone 10 mg tablet 30 mg PO QDAY Rx Instructions: for 5 days to start 10/05/2022 No Action (DME) Recliner See Rx Instructions .Route .MEDSUPPLY Qty: 1 0RF Rx Instructions: Due to patient's medical conditions she needs to sleep in a recliner (DME) oxygen 2lpm Qty: 1 Rx Instructions: As directed Follow Up Plan Follow up with: Unknown,Unknown [Primary Care Provider] - Patient Disposition: Home Health Service Overall status at discharge: patient is progressing back to baseline Discharge Orders: Discharge Order (Routine); Ordered 10/08/22 Ordered By: Baltazar Berry
== END 2022-10-08 14:30 | disposition home health service (06) | DRG 190 ==
LOC: ED 16:27 → MEDSUR 22:23
PROVIDERS: ADMIT Internal Medicine; ATTEND Internal Medicine